=== PATIENT | female | born 1975 | race Caucasian/White ===

== ENCOUNTER 2017-12-18 18:56 | Emergency (ER) | payer OTHER ==
[~2017-12-18] VITALS: Ht 162.6 cm; Wt 82.1 kg
[~2017-12-18 18:56] MED LIST: AMBIEN10 MG; AMOX1TAB12 PO; AZITHROMYCIN; CATAFLAM50 MG PO; CIPRO500 MG PO; CITALOPRAM HBR20 MG; CLONAZEPAM0.5 MG; CORTISPORIN EAR10 ML OT; DOLOGEN CAPLET1 EACH PO; FIORICET 50-321 EACH PO; IBUPROFEN800 MG PO; KETO10TA2 PO; LAMICTAL100 MG; LEXAPRO5 MG; NORFLEX100MG PO; ORPH100T PO; PROTONIX40 MG PO; RESTORIL15 M1; RISPERDAL0.5 MG
== END 2017-12-18 20:37 | disposition home or self-care (01) ==
LOC: ER 18:56
DX: J06.9 Acute upper respiratory infection, unspecified (principal); R51 Headache

== ENCOUNTER 2018-01-08 13:39 | Emergency (ER) | payer OTHER ==
[~2018-01-08] VITALS: Ht 162.6 cm; Wt 81.6 kg
== END 2018-01-08 17:59 | disposition home or self-care (01) ==
LOC: ER 13:39
DX: N39.0 Urinary tract infection, site not specified (principal); K29.70 Gastritis, unspecified, without bleeding

== ENCOUNTER 2018-07-08 13:19 | Emergency (ER) | payer OTHER ==
[~2018-07-08] VITALS: Ht 160 cm; Wt 77.1 kg
[2018-07-08] MEDS ORDERED: KETO10TA2 PO (15:32)
[2018-07-08] MEDS ORDERED: NORFLEX100MG PO (15:32)
== END 2018-07-08 15:36 | disposition home or self-care (01) ==
LOC: ER 13:19
DX: M54.2 Cervicalgia (principal); R07.89 Other chest pain

== ENCOUNTER 2018-09-02 12:36 | Emergency (ER) | payer OTHER ==
[~2018-09-02] VITALS: Ht 162.6 cm; Wt 77.1 kg
[2018-09-02] MEDS ORDERED: KETO10TA2 PO (15:40)
[2018-09-02] MEDS ORDERED: NORFLEX100MG PO (15:40)
== END 2018-09-02 15:54 | disposition home or self-care (01) ==
LOC: ER 12:36
DX: B34.9 Viral infection, unspecified (principal); M54.2 Cervicalgia

== ENCOUNTER 2019-08-13 12:52 | Emergency (ER) | payer OTHER ==
[~2019-08-13] VITALS: Ht 162.6 cm; Wt 80.7 kg
[2019-08-13] MEDS ORDERED: MEDROXYPROGESTE10 MG PO (17:38)
[2019-08-13] MEDS ORDERED: DOLOGEN CAPLET1 EACH PO (17:38)
[2019-08-13] MEDS ORDERED: AMOX-CLAV 875-1 EACH PO (17:38)
== END 2019-08-13 17:58 | disposition home or self-care (01) ==
LOC: ER 12:52
DX: J03.90 Acute tonsillitis, unspecified (principal); N93.8 Other specified abnormal uterine and vaginal bleeding

== ENCOUNTER 2019-09-20 10:36 | Emergency (ER) | payer OTHER ==
[~2019-09-20] VITALS: Ht 162.6 cm; Wt 80.7 kg
[~2019-09-20 10:36] MED LIST changes: +AMOX-CLAV 875-1 EACH PO; +MEDROXYPROGESTE10 MG PO
[2019-09-20] MEDS ORDERED: ZITHROMAX500 MG PO (15:04)
[2019-09-20] MEDS ORDERED: NORFLEX100MG PO (15:06)
== END 2019-09-20 15:13 | disposition home or self-care (01) ==
LOC: ER 10:36
DX: R51 Headache (principal); M54.2 Cervicalgia

== ENCOUNTER → 2020-02-14 | Emergency (ER) | payer OTHER ==
[~2020-02-14] VITALS: Ht 162.6 cm; Wt 78.9 kg
[~2020-02-14] MED LIST changes: +DICLOFENAC SODI75 MG PO; +ZITHROMAX500 MG PO
== END | disposition home or self-care (01) ==
LOC: ER 22:02
DX: S00.83XA Contusion of other part of head, initial encounter (principal); S40.012A Contusion of left shoulder, initial encounter; S80.02XA Contusion of left knee, initial encounter; M62.830 Muscle spasm of back; V43.52XA Car driver injured in collision with other type car in traffic accident, initial encounter; Y93.89 Activity, other specified; Y92.488 Other paved roadways as the place of occurrence of the external cause; Y99.8 Other external cause status

== ENCOUNTER 2022-04-21 16:36 | Emergency (ER) | payer OTHER ==
[~2022-04-21] VITALS: Ht 162.6 cm; Wt 73.0 kg
== END 2022-04-21 20:08 | disposition home or self-care (01) ==
LOC: ER 16:36
DX: U07.1 COVID-19 (principal); R51.9 Headache, unspecified

== ENCOUNTER 2022-04-26 15:22 | Outpatient (CLI) | payer OTHER | END 2022-04-26 16:25 | disposition home or self-care (01) | LOC: PPH VACUNA 15:22 → ASH CLINIC 15:22 → PPH VACUNA 16:25 | PROVIDERS: ATTEND General Practice | DX: U07.0 Vaping-related disorder (principal) ==

== ENCOUNTER 2022-09-26 04:27 | Emergency (ER) | payer OTHER ==
[~2022-09-26] VITALS: Ht 161.3 cm; Wt 72.6 kg
== END 2022-09-26 09:54 | disposition home or self-care (01) ==
LOC: ER 04:27
DX: J02.9 Acute pharyngitis, unspecified (principal)

== ENCOUNTER 2024-03-24 13:22 | Emergency (ER) | payer OTHER ==
[~2024-03-24] VITALS: Ht 160 cm; Wt 73.9 kg
[~2024-03-24 13:22] MED LIST changes: +FIORICET 50-301 EACH PO
[2024-03-24] MEDS ORDERED: ZESTRIL20 MG (13:26)
[2024-03-24] MEDS ORDERED: PEPCID AC20 MG (13:26)
[2024-03-24] MEDS ORDERED: CEFTRIAXONE SODIUM 2,000 MG VIAL IV STA (14:03)
[2024-03-24] MEDS ORDERED: ACETAMINOPHEN 500 MG GEL..CAP PO STA (14:04)
[2024-03-24] MEDS ORDERED: ACETAMINOPHEN 500 MG GEL..CAP PO ONE (14:07)
[2024-03-24] MEDS ORDERED: CEFTRIAXONE SODIUM 2,000 MG VIAL ONE (14:07)
== END 2024-03-24 14:45 | disposition home or self-care (01) ==
LOC: ER 13:23
DX: K61.0 Anal abscess (principal); I10 Essential (primary) hypertension; Z88.5 Allergy status to narcotic agent; Z88.6 Allergy status to analgesic agent

== ENCOUNTER 2024-04-01 12:26 | Outpatient (CLI) | payer OTHER ==
[~2024-04-01 12:26] MED LIST changes: +PEPCID AC20 MG; +ZESTRIL20 MG
== END 2024-04-01 12:40 | disposition home or self-care (01) ==
LOC: RAD 12:26
DX: M99.01 Segmental and somatic dysfunction of cervical region (principal)

== ENCOUNTER 2024-06-01 10:43 | Outpatient (CLI) | payer OTHER | END 2024-06-01 10:47 | disposition home or self-care (01) | LOC: MRI 10:43 | DX: M54.2 Cervicalgia (principal) | CPT/HCPCS: 72141 ==

== ENCOUNTER → 2024-08-15 | Emergency (ER) | payer OTHER ==
[~2024-08-15] VITALS: Ht 160 cm; Wt 72.6 kg
== END | disposition left against medical advice (07) ==
LOC: ER 11:46
DX: Z53.21 Procedure and treatment not carried out due to patient leaving prior to being seen by health care provider (principal)

== ENCOUNTER 2024-08-23 17:25 | Emergency (ER) | payer OTHER ==
[~2024-08-23] VITALS: Ht 160 cm; Wt 72.6 kg
[2024-08-23 18:09] VITALS: BP 155/88; O2SAT 97
[2024-08-23] MEDS ORDERED: FAMOTIDINE/PF 20 MG/2 ML VIAL ONE (19:29)
[2024-08-23] MEDS ORDERED: ONDANSETRON HCL 2 MG/ML VIAL ONE (19:29)
[2024-08-23] MEDS ORDERED: 0.9 % SODIUM CHLORIDE 500 ML IV ONE (19:30)
[2024-08-23] MEDS ORDERED: FAMOTIDINE/PF 20 MG/2 ML VIAL IV ONE (19:30)
[2024-08-23] MEDS ORDERED: ONDANSETRON HCL 2 MG/ML VIAL IV ONE (19:30)
[2024-08-23] MEDS ORDERED: SUCRALFATE 1 G TABLET PO ONE (19:30)
[2024-08-23 20:48] LABS: HEMATOCRIT 41.5 % (36.0-45.00); HEMOGLOBIN 13.5 g/dL (12.0-15.00); MEAN CELL VOLUME 86.2 fL (80.00-100.00); MEAN CORPUSCULAR HEMOGLOBIN 28.1 pg (27.00-32.0); MEAN CORPUSCULAR HGB CONC 32.6 g/dl (32.0-36.0); PLATELET COUNT 320 K/uL (150-450); RED BLOOD COUNT 4.81 M/uL (4.00-6.00); RED CELL DISTRIBUTION WIDTH 13.2 % (11.5-14.5)
[2024-08-23 22:17] LABS: ALBUMIN 3.9 gm/dL (3.4-5.0); BILIRUBIN TOTAL 0.43 mg/dL (0.3-1.2); CALCIUM 9.1 mg/dL (8.5-10.1); CREATININE SERUM 0.77 mg/dL (0.55-1.02); GFR 79.03; GLOBULINA 4.3 G/DL (2.4-3.5); POTASSIUM 3.65 mEq/L (3.5-5.1); TOTAL PROTEIN 8.2 gm/dL (6.4-8.2)
[2024-08-23] MEDS ORDERED: CARAFATE1 GM PO (22:33)
[2024-08-23] MEDS ORDERED: PROTONIX20 MG PO (22:33)
== END 2024-08-23 22:39 | disposition home or self-care (01) ==
LOC: ER 17:27
PROVIDERS: General Practice
DX: K29.70 Gastritis, unspecified, without bleeding (principal); Z88.6 Allergy status to analgesic agent; Z88.5 Allergy status to narcotic agent; Z88.8 Allergy status to other drugs, medicaments and biological substances; Z87.11 Personal history of peptic ulcer disease; Z87.19 Personal history of other diseases of the digestive system

== ENCOUNTER 2025-01-10 10:27 | Outpatient (CLI) | payer OTHER ==
[~2025-01-10 10:27] MED LIST changes: +CARAFATE1 GM PO; +PROTONIX20 MG PO
== END 2025-01-10 10:35 | disposition home or self-care (01) ==
LOC: RAD 10:27
PROVIDERS: ATTEND Physical Medicine & Rehabilitation
DX: M25.561 Pain in right knee (principal)

== ENCOUNTER 2025-01-14 11:07 | Outpatient (CLI) | payer OTHER | END 2025-01-14 11:08 | disposition home or self-care (01) | LOC: SONOGRAMA 11:07 | PROVIDERS: ATTEND Internal Medicine | DX: E04.1 Nontoxic single thyroid nodule (principal); M25.569 Pain in unspecified knee; K20.90 Esophagitis, unspecified without bleeding; R13.10 Dysphagia, unspecified; D64.9 Anemia, unspecified; M25.50 Pain in unspecified joint ==

== ENCOUNTER 2025-01-21 10:56 | Outpatient (CLI) | payer OTHER | END 2025-01-21 11:12 | disposition home or self-care (01) | LOC: SONOGRAMA 10:56 | PROVIDERS: ATTEND Internal Medicine | DX: K76.0 Fatty (change of) liver, not elsewhere classified (principal); R10.9 Unspecified abdominal pain; E04.1 Nontoxic single thyroid nodule; M25.569 Pain in unspecified knee; K20.90 Esophagitis, unspecified without bleeding; R13.10 Dysphagia, unspecified; D64.9 Anemia, unspecified; M25.50 Pain in unspecified joint ==

== ENCOUNTER 2025-04-13 15:40 | Outpatient (CLI) | payer OTHER | END 2025-04-13 15:58 | disposition home or self-care (01) | LOC: RAD 15:40 | PROVIDERS: ATTEND Internal Medicine | DX: M54.50 Low back pain, unspecified (principal); M25.50 Pain in unspecified joint; M25.569 Pain in unspecified knee; K20.90 Esophagitis, unspecified without bleeding; R13.10 Dysphagia, unspecified; D64.9 Anemia, unspecified ==

== ENCOUNTER 2025-04-18 11:19 | Outpatient (CLI) | payer OTHER | END 2025-04-18 11:25 | disposition home or self-care (01) | LOC: MAMO-SONO 11:19 | PROVIDERS: ATTEND Internal Medicine | DX: R92.8 Other abnormal and inconclusive findings on diagnostic imaging of breast (principal); Z98.890 Other specified postprocedural states ==